=== PATIENT | female | born 1990 | race Caucasian/White ===

== ENCOUNTER → 2017-04-08 | Outpatient (CLI) | payer BC ==
[~2017-04-08] MED LIST: BIRTH CONTROL1 EAC1 PO; IBU-6600 MG PO; NAPROSYN500 MG PO
[2017-04-09 16:11] LABS: RUBEOLA AB IGG 096560 >300.0 AU/mL (Immune >29.9); VARICELLA-ZOSTER IGG 096206 381 index (Immune >165)
== END | disposition home or self-care (01) ==
LOC: LAB 17:36
PROVIDERS: Family Medicine
DX: Z00.00 Encounter for general adult medical examination without abnormal findings (principal)

== ENCOUNTER 2018-04-30 18:06 | Emergency (ER) | payer OTHER, BC ==
[~2018-04-30] VITALS: Ht 170.2 cm; Wt 81.6 kg
[2018-04-30] MEDS ORDERED: CHLORZOXAZONE500 M2 PO (18:18)
[2018-04-30] MEDS ORDERED: NAPROSYN500 MG PO (18:18)
== END 2018-04-30 19:54 | disposition home or self-care (01) ==
LOC: ED 18:06
DX: S13.9XXA Sprain of joints and ligaments of unspecified parts of neck, initial encounter (principal); S39.012A Strain of muscle, fascia and tendon of lower back, initial encounter; R03.0 Elevated blood-pressure reading, without diagnosis of hypertension; Z79.899 Other long term (current) drug therapy; V89.2XXA Person injured in unspecified motor-vehicle accident, traffic, initial encounter; Y93.I9 Activity, other involving external motion; Y92.488 Other paved roadways as the place of occurrence of the external cause; Y99.8 Other external cause status